=== PATIENT | male | born 1955 | race Hispanic/Latino ===

== ENCOUNTER 2020-01-17 15:54 | Emergency (ER) | payer OTHER ==
[~2020-01-17 15:54] MED LIST: AMLO5TAB5 PO; CEFU500T67 PO; DOXY100C2 PO; HYDR25TA PO; LOSA100T58 PO; SIMV10TA97 PO; TAMS0.4C32 PO
[2020-01-17] MEDS ORDERED: LIDOCAINE HCL MPF 1% 5ML VIAL ONE ×2 (16:24→16:25)
[2020-01-17] MEDS ORDERED: CEFAZOLIN SODIUM 1 GM VIAL ONE (16:43)
[2020-01-17] MEDS ORDERED: TETANUS/DIPHTHERIA TOXOID [ADULT] 0.5 ML VIAL IM ONE (16:44)
== END 2020-01-17 17:27 | disposition home or self-care (01) ==
LOC: EDH 15:54
DX: S61.412A Laceration without foreign body of left hand, initial encounter (principal); I10 Essential (primary) hypertension; W26.0XXA Contact with knife, initial encounter; Y93.89 Activity, other specified; Y92.89 Other specified places as the place of occurrence of the external cause; Y99.8 Other external cause status
CPT/HCPCS: 12041; 73130; 90471; 90714; 96372; 99284; J0690; J3490 ×2

== ENCOUNTER 2020-01-18 01:12 | Emergency (ER) | payer OTHER | END 2020-01-18 01:39 | disposition home or self-care (01) | LOC: EDH 01:12 | DX: T81.33XA Disruption of traumatic injury wound repair, initial encounter (principal); I10 Essential (primary) hypertension; X58.XXXA Exposure to other specified factors, initial encounter; Y93.89 Activity, other specified; Y92.89 Other specified places as the place of occurrence of the external cause; Y99.8 Other external cause status ==

== ENCOUNTER 2023-09-26 04:12 | Inpatient (IN) | payer OTHER ==
[2023-09-26] VITALS (11 sets, daily range): BP systolic 125–149; BP diastolic 73–113; PULSE 63–73; RESP 12–18; O2SAT 96–100
[~2023-09-26] VITALS: Ht 170.2 cm; Wt 82.2 kg
[~2023-09-26 04:12] MED LIST changes: -DOXY100C2 PO; +DOXY100C5 PO; -LOSA100T58 PO; +LOSA100T59 PO
[2023-09-26 04:50] LABS: BASOPHILS # (AUTO) 0.05 K/uL (0.00-0.20); BASOPHILS % (AUTO) 0.7 % (0.0-5.0); EOSINOPHILS # (AUTO) 0.36 K/uL (0.00-0.70); EOSINOPHILS % (AUTO) 4.9 % (0.0-8.0); IMMATURE GRANULOCYTE ABSOLUTE 0.02 K/uL (0-1); LYMPHOCYTES % (AUTO) 26.5 % (21.0-51.0); MEAN CORPUSCULAR HEMOGLOBIN 32.8 pg (27.0-33.0); MEAN CORPUSCULAR HGB CONC 35.7 g/dL (32.0-36.0); MEAN CORPUSCULAR VOLUME 91.8 fL (79-99); MONOCYTES # (AUTO) 0.7 K/uL (0.1-1.0); MONOCYTES % (AUTO) 10.1 % (3.0-13.0); NEUTROPHILS # (AUTO) 4.2 K/uL (1.8-7.7); NEUTROPHILS % (AUTO) 57.5 % (40.0-77.0); PLATELET COUNT (AUTO) 255 K/uL (130-400); RED BLOOD CELL COUNT(AUTO) 4.03 MIL/uL (4.50-6.20); RED CELL DISTRIBUTION WIDTH 13.4 % (11.0-15.5); WHITE BLOOD COUNT (AUTO) 7.4 K/uL (4.8-10.8)
[2023-09-26 04:59] LABS: ALBUMIN 3.8 g/dL (3.5-5.0); BILIRUBIN,TOTAL 0.9 mg/dL (0.2-1.0); CREATININE 1.2 mg/dL (0.5-1.5); TOTAL PROTEIN, SERUM 7.6 g/dL (6.0-8.3)
[2023-09-26 05:03] LABS: POTASSIUM 2.9 mmol/L (3.5-5.1)
[2023-09-26 05:18] LABS: INR 1.04 (0.85-1.15); PARTIAL THROMBOPLASTIN TIME 25.5 SEC (26.3-35.5); PROTHROMBIN TIME 11.2 SEC (9.6-11.6)
[2023-09-26] MEDS ORDERED: POTASSIUM CHLORIDE 10% ELIXIR 20 MEQ/15 ML UDCUP PO ONE ×2 (05:30→06:00)
[2023-09-26] MEDS ORDERED: POTASSIUM CHLORIDE 20MEQ/100ML 100 ML IV ONE (05:30)
[2023-09-26] MEDS ORDERED: HYDR25TA PO (06:12)
[2023-09-26] MEDS ORDERED: LOSA50TA64 PO (06:12)
[2023-09-26] MEDS ORDERED: SIMV10TA97 PO (06:12)
[2023-09-26] MEDS ORDERED: TAMS-1 PO (06:12)
[2023-09-26] MEDS ORDERED: DUTA0.5C37 PO (06:12)
[2023-09-26] MEDS ORDERED: MAGNESIUM 2GM PREMIX 50ML 50 ML IV PRN (07:00)
[2023-09-26] MEDS ORDERED: ACETAMINOPHEN 325 MG TAB PO PRN (07:00)
[2023-09-26] MEDS ORDERED: ONDANSETRON 4MG INJ IVP PRN (07:00)
[2023-09-26] MEDS ORDERED: LABETALOL 20MG SYG IV PRN (07:00)
[2023-09-26] MEDS ORDERED: IPRATROPIUM 0.5 MG/2.5 ML INH IH PRN (07:00)
[2023-09-26 07:24] LABS: HEMOGLOBIN A1C 5.4 % (4.0-6.0)
[2023-09-26 07:58] LABS: THYROID STIMULATING HORMONE 0.87 uIU/mL (0.36-3.74)
[2023-09-26] MEDS ORDERED: ENOXAPARIN SODIUM 40 MG/0.4 ML SYRINGE SQ ONE ×2 (10:14→10:30)
[2023-09-26 12:11] LABS: MAGNESIUM 2.2 mg/dL (1.80-2.40); POTASSIUM 3.9 mmol/L (3.5-5.1)
[2023-09-26] MEDS ORDERED: NITROGLYCERIN 0.4 MG SL TAB SL PRN (13:30)
[2023-09-26] MEDS: METOPROLOL SUCCINATE 25 MG TAB.SR.24H PO SCH (16:37)
[2023-09-26] MEDS: LOSARTAN 50 MG TABLET PO SCH (16:37)
[2023-09-26] MEDS ORDERED: IOHEXOL 350 MG/ML 100ML INFUS..BTL IV ONE (17:15)
[2023-09-26] MEDS ORDERED: 0.9%NACL 1000ML 1,000 ML IV SCH (18:00)
[2023-09-26] MEDS: SIMVASTATIN 10 MG TABLET PO SCH (19:58)
[2023-09-26] MEDS: FAMOTIDINE 20MG TAB PO SCH (19:58)
[2023-09-26] MEDS: ENOXAPARIN SODIUM 80 MG/0.8 ML SQ SCH (19:58)
[2023-09-26 22:51] LABS: APPEARANCE,URINE CLEAR (CLEAR); BILIRUBIN,URINE NEGATIVE (NEGATIVE); COLOR,URINE YELLOW (YELLOW); GLUCOSE, URINE (UA) 200 mg/dL (NEGATIVE); KETONES,URINE NEGATIVE (NEGATIVE); LEUKOCYTE ESTERASE ,URINE NEGATIVE Leu/uL (NEGATIVE); MUCUS,URINE FEW LPF (None Seen); NITRATE,URINE NEGATIVE (NEGATIVE); OCCULT BLOOD,URINE NEGATIVE (NEGATIVE); PROTEIN,URINE 10 mg/dL (NEGATIVE); RBC,URINE 0-1 /HPF (0-1); SQUAMOUS EPITHELIAL CELL,UR RARE /HPF (0-2); UROBILINOGEN,URINE 0.2 mg/dL (0.2-1.0); WBC,URINE 0-1 /HPF (0-1)
[2023-09-27] VITALS (9 sets, daily range): BP systolic 142–151; BP diastolic 80–88; PULSE 63–71; RESP 18–20; O2SAT 97–99
[2023-09-27 05:07] LABS: BASOPHILS # (AUTO) 0.04 K/uL (0.00-0.20); BASOPHILS % (AUTO) 0.8 % (0.0-5.0); EOSINOPHILS # (AUTO) 0.35 K/uL (0.00-0.70); EOSINOPHILS % (AUTO) 6.7 % (0.0-8.0); HEMATOCRIT 35.7 % (42-54); IMMATURE GRANULOCYTE ABSOLUTE 0.01 K/uL (0-1); LYMPHOCYTES % (AUTO) 37.6 % (21.0-51.0); MEAN CORPUSCULAR HEMOGLOBIN 32.4 pg (27.0-33.0); MEAN CORPUSCULAR HGB CONC 34.2 g/dL (32.0-36.0); MEAN CORPUSCULAR VOLUME 94.7 fL (79-99); MONOCYTES # (AUTO) 0.5 K/uL (0.1-1.0); MONOCYTES % (AUTO) 9.7 % (3.0-13.0); NEUTROPHILS # (AUTO) 2.4 K/uL (1.8-7.7); PLATELET COUNT (AUTO) 213 K/uL (130-400); RED BLOOD CELL COUNT(AUTO) 3.77 MIL/uL (4.50-6.20); RED CELL DISTRIBUTION WIDTH 13.6 % (11.0-15.5); WHITE BLOOD COUNT (AUTO) 5.2 K/uL (4.8-10.8)
[2023-09-27 05:25] LABS: CREATININE 0.8 mg/dL (0.5-1.5); MAGNESIUM 2.1 mg/dL (1.80-2.40); PHOSPHORUS 2.1 mg/dL (2.5-4.9)
[2023-09-27] MEDS ORDERED: REGADENOSON 0.4 MG/5 ML PF SYG IVP SCH (07:00)
[2023-09-27] MEDS ORDERED: LOSARTAN 50 MG TABLET PO SCH (09:00)
[2023-09-27] MEDS ORDERED: ENOXAPARIN SODIUM 40 MG/0.4 ML SYRINGE SQ SCH (09:00)
[2023-09-27] MEDS ORDERED: HYDROCHLOROTHIAZIDE 25 MG TABLET PO SCH (09:00)
[2023-09-27] MEDS: TAMSULOSIN HCL 0.4 MG CAP.ER.24H PO SCH (09:25)
[2023-09-27] MEDS: FAMOTIDINE 20MG TAB PO SCH ×2 (09:25→20:56)
[2023-09-27] MEDS: LOSARTAN 50 MG TABLET PO SCH (09:25)
[2023-09-27] MEDS: METOPROLOL SUCCINATE 25 MG TAB.SR.24H PO SCH (09:25)
[2023-09-27] MEDS: ENOXAPARIN SODIUM 80 MG/0.8 ML SQ SCH ×2 (09:26→20:58)
[2023-09-27] MEDS: SIMVASTATIN 10 MG TABLET PO SCH (20:56)
[2023-09-27] MEDS: GABAPENTIN 300 MG CAPSULE PO SCH (20:56)
[2023-09-27] MEDS: NEUTRA-PHOS PACKET 1 EACH PO SCH (20:59)
[2023-09-28] VITALS (9 sets, daily range): BP systolic 127–149; BP diastolic 76–89; PULSE 56–74; RESP 18–20; O2SAT 96–99
[2023-09-28 05:18] LABS: CREATININE 0.8 mg/dL (0.5-1.5); MAGNESIUM 2.1 mg/dL (1.80-2.40); PHOSPHORUS 2.8 mg/dL (2.5-4.9); POTASSIUM 3.6 mmol/L (3.5-5.1)
[2023-09-28] MEDS: FAMOTIDINE 20MG TAB PO SCH ×2 (09:34→21:13)
[2023-09-28] MEDS: METOPROLOL SUCCINATE 25 MG TAB.SR.24H PO SCH (09:34)
[2023-09-28] MEDS: ENOXAPARIN SODIUM 80 MG/0.8 ML SQ SCH ×2 (09:34→21:12)
[2023-09-28] MEDS: TAMSULOSIN HCL 0.4 MG CAP.ER.24H PO SCH (09:35)
[2023-09-28] MEDS: NEUTRA-PHOS PACKET 1 EACH PO SCH ×3 (09:36→21:16)
[2023-09-28] MEDS: LOSARTAN 50 MG TABLET PO SCH (09:36)
[2023-09-28] MEDS: GABAPENTIN 300 MG CAPSULE PO SCH (21:13)
[2023-09-28] MEDS: SIMVASTATIN 10 MG TABLET PO SCH (21:14)
[2023-09-29] VITALS (9 sets, daily range): BP systolic 116–160; BP diastolic 80–92; PULSE 61–79; RESP 18–20; O2SAT 97–99
[2023-09-29 05:34] LABS: CREATININE 0.8 mg/dL (0.5-1.5); MAGNESIUM 2.1 mg/dL (1.80-2.40); POTASSIUM 3.8 mmol/L (3.5-5.1)
[2023-09-29] MEDS ORDERED: APIX5TAB PO (05:53)
[2023-09-29] MEDS ORDERED: METO25TA3 PO (05:53)
[2023-09-29] MEDS ORDERED: IOHEXOL 350 MG/ML 100ML INFUS..BTL IV ONE ×2 (08:27→09:05)
[2023-09-29] MEDS ORDERED: METOPROLOL TARTRATE 1 MG/ML 5ML VIAL IV ONE (08:58)
[2023-09-29] MEDS: FAMOTIDINE 20MG TAB PO SCH ×2 (10:42→20:24)
[2023-09-29] MEDS: TAMSULOSIN HCL 0.4 MG CAP.ER.24H PO SCH (10:42)
[2023-09-29] MEDS: ENOXAPARIN SODIUM 80 MG/0.8 ML SQ SCH (10:42)
[2023-09-29] MEDS: NEUTRA-PHOS PACKET 1 EACH PO SCH ×3 (10:42→20:27)
[2023-09-29] MEDS: METOPROLOL SUCCINATE 25 MG TAB.SR.24H PO SCH (10:42)
[2023-09-29] MEDS: LOSARTAN 50 MG TABLET PO SCH (10:43)
[2023-09-29] MEDS: GABAPENTIN 300 MG CAPSULE PO SCH (20:24)
[2023-09-29] MEDS: SIMVASTATIN 10 MG TABLET PO SCH (20:24)
[2023-09-29] MEDS ORDERED: APIXABAN 5 MG TABLET PO SCH (21:00)
[2023-09-29] MEDS ORDERED: ENOXAPARIN SODIUM 80 MG/0.8 ML SQ SCH (21:00)
[2023-09-30 01:02] VITALS: BP 145/76; PULSE 69; RESP 18
[2023-09-30 04:40] VITALS: BP 140/65; PULSE 67; RESP 18
[2023-09-30 06:19] LABS: BASOPHILS # (AUTO) 0.03 K/uL (0.00-0.20); BASOPHILS % (AUTO) 0.5 % (0.0-5.0); EOSINOPHILS # (AUTO) 0.32 K/uL (0.00-0.70); EOSINOPHILS % (AUTO) 5.5 % (0.0-8.0); HEMATOCRIT 39.3 % (42-54); IMMATURE GRANULOCYTE ABSOLUTE 0.01 K/uL (0-1); LYMPHOCYTES # (AUTO) 2.4 K/uL (1.0-4.8); LYMPHOCYTES % (AUTO) 40.8 % (21.0-51.0); MEAN CORPUSCULAR HEMOGLOBIN 32.5 pg (27.0-33.0); MEAN CORPUSCULAR HGB CONC 34.6 g/dL (32.0-36.0); MONOCYTES # (AUTO) 0.5 K/uL (0.1-1.0); MONOCYTES % (AUTO) 8.8 % (3.0-13.0); NEUTROPHILS # (AUTO) 2.6 K/uL (1.8-7.7); NEUTROPHILS % (AUTO) 44.2 % (40.0-77.0); PLATELET COUNT (AUTO) 223 K/uL (130-400); RED BLOOD CELL COUNT(AUTO) 4.18 MIL/uL (4.50-6.20); RED CELL DISTRIBUTION WIDTH 13.2 % (11.0-15.5); WHITE BLOOD COUNT (AUTO) 5.8 K/uL (4.8-10.8)
[2023-09-30 06:37] LABS: ALBUMIN 3.3 g/dL (3.5-5.0); BILIRUBIN,TOTAL 0.4 mg/dL (0.2-1.0); CREATININE 0.8 mg/dL (0.5-1.5); MAGNESIUM 2.1 mg/dL (1.80-2.40); POTASSIUM 3.6 mmol/L (3.5-5.1); TOTAL PROTEIN, SERUM 6.9 g/dL (6.0-8.3)
[2023-09-30 07:00] VITALS: O2SAT 97
[2023-09-30] MEDS ORDERED: APIXABAN 5 MG TABLET PO ONE (07:00)
[2023-09-30 07:32] VITALS: PULSE 80; RESP 18; O2SAT 93
[2023-09-30 08:08] VITALS: BP 174/90; PULSE 65; RESP 16
[2023-09-30] MEDS: FAMOTIDINE 20MG TAB PO SCH (08:34)
[2023-09-30] MEDS: TAMSULOSIN HCL 0.4 MG CAP.ER.24H PO SCH (08:35)
[2023-09-30] MEDS: METOPROLOL SUCCINATE 25 MG TAB.SR.24H PO SCH (08:36)
[2023-09-30] MEDS: NEUTRA-PHOS PACKET 1 EACH PO SCH (08:43)
[2023-09-30] MEDS: LOSARTAN 50 MG TABLET PO SCH (08:46)
[2023-09-30 12:47] VITALS: BP 158/82; PULSE 67; RESP 16
== END 2023-09-30 15:10 | disposition home or self-care (01) | DRG 281 ==
LOC: EDH 04:12 → EDHIP 06:34 → OBSVTOIN 06:34 → 2CV 10:43 → 2AH 21:32
PROVIDERS: ADMIT Internal Medicine Critical Care Medicine; ATTEND Internal Medicine Critical Care Medicine
PROC: 4A02XM4 Measurement of Cardiac Total Activity, External Approach (ICD-10-PCS; principal; 2023-09-27)
PROC: 3E033HZ Introduction of Radioactive Substance into Peripheral Vein, Percutaneous Approach (ICD-10-PCS; 2023-09-27)
DX: I21.4 Non-ST elevation (NSTEMI) myocardial infarction (principal); I48.92 Unspecified atrial flutter; I48.91 Unspecified atrial fibrillation; E87.6 Hypokalemia; I10 Essential (primary) hypertension; E78.00 Pure hypercholesterolemia, unspecified; I25.10 Atherosclerotic heart disease of native coronary artery without angina pectoris; Z79.899 Other long term (current) drug therapy; Z82.49 Family history of ischemic heart disease and other diseases of the circulatory system
CPT/HCPCS: 36415; 71045; 71275; 75574; 78452; 80048; 80053; 80061; 81001; 83036; 83735; 83880; 84100; 84132; 84443; 84484; 85025; 85378; 85610; 85730; 93005; 93017; 93306; 93970; 96374; A9500; G0378; J1650; J2785; J3480; J3490; Q9967

== ENCOUNTER 2023-10-31 06:43 | Day surgery (SDC) | payer OTHER ==
[2023-10-29 10:21] LABS: BASOPHILS # (AUTO) 0.04 K/uL (0.00-0.20); BASOPHILS % (AUTO) 0.7 % (0.0-5.0); EOSINOPHILS # (AUTO) 0.27 K/uL (0.00-0.70); EOSINOPHILS % (AUTO) 4.6 % (0.0-8.0); HEMATOCRIT 41.7 % (42-54); IMMATURE GRANULOCYTE ABSOLUTE 0.01 K/uL (0-1); LYMPHOCYTES % (AUTO) 33.6 % (21.0-51.0); MEAN CORPUSCULAR HEMOGLOBIN 31.6 pg (27.0-33.0); MEAN CORPUSCULAR HGB CONC 34.1 g/dL (32.0-36.0); MEAN CORPUSCULAR VOLUME 92.9 fL (79-99); MONOCYTES # (AUTO) 0.5 K/uL (0.1-1.0); NEUTROPHILS # (AUTO) 3.1 K/uL (1.8-7.7); NEUTROPHILS % (AUTO) 52.9 % (40.0-77.0); PLATELET COUNT (AUTO) 208 K/uL (130-400); RED BLOOD CELL COUNT(AUTO) 4.49 MIL/uL (4.50-6.20); RED CELL DISTRIBUTION WIDTH 12.9 % (11.0-15.5); WHITE BLOOD COUNT (AUTO) 5.9 K/uL (4.8-10.8)
[2023-10-29 10:28] LABS: APPEARANCE,URINE CLEAR (CLEAR); BILIRUBIN,URINE NEGATIVE (NEGATIVE); COLOR,URINE LIGHT-YELLOW (YELLOW); GLUCOSE, URINE (UA) NEGATIVE (NEGATIVE); KETONES,URINE NEGATIVE (NEGATIVE); LEUKOCYTE ESTERASE ,URINE NEGATIVE Leu/uL (NEGATIVE); NITRATE,URINE NEGATIVE (NEGATIVE); OCCULT BLOOD,URINE NEGATIVE (NEGATIVE); PH,URINE 6.5 (5.0-8.0); PROTEIN,URINE NEGATIVE (NEGATIVE); UROBILINOGEN,URINE 0.2 mg/dL (0.2-1.0)
[2023-10-29 10:31] LABS: CREATININE 0.9 mg/dL (0.5-1.5); POTASSIUM 4.3 mmol/L (3.5-5.1)
[2023-10-29 10:32] LABS: ADD UA MICROSCOPIC NO
[2023-10-29 10:45] VITALS: BP 166/87; PULSE 63; RESP 18
[2023-10-29 10:48] LABS: INR 1.01 (0.85-1.15); PROTHROMBIN TIME 11.7 SEC (9.6-11.6)
[2023-10-29 10:49] LABS: PARTIAL THROMBOPLASTIN TIME 30.8 SEC (26.3-35.5)
[2023-10-29 10:55] LABS: B-TYPE NATRIURETIC PEPTIDE 103 pg/mL (0-100)
[~2023-10-31] VITALS: Ht 170.2 cm; Wt 127.3 kg
[2023-10-31] VITALS (8 sets, daily range): BP systolic 117–151; BP diastolic 65–83; PULSE 73–88; RESP 16
[~2023-10-31 06:43] MED LIST changes: -AMLO5TAB5 PO; +APIX5TAB PO; -CEFU500T67 PO; -DOXY100C5 PO; -HYDR25TA PO; -LOSA100T59 PO; +LOSA25TA41 PO; +METO25TA3 PO; +TAMS-1 PO; -TAMS0.4C32 PO
[2023-10-31] MEDS ORDERED: 0.9%NACL 1000ML 1,000 ML IV ONE (07:27)
[2023-10-31] MEDS ORDERED: IOHEXOL 350 MG/ML 100ML INFUS..BTL IV ONE (09:14)
[2023-10-31] MEDS ORDERED: LIDOCAINE HCL 400MG/20ML VIAL ONE (09:14)
[2023-10-31] MEDS ORDERED: MIDAZOLAM HCL 1 MG/ML 2ML VIAL ONE (09:32)
[2023-10-31] MEDS ORDERED: IOHEXOL-350 50ML VIAL IV ONE (09:38)
[2023-10-31] MEDS ORDERED: HYDRALAZINE 20MG/ML VIAL ONE (09:47)
[2023-10-31] MEDS ORDERED: TRAMADOL HCL 50 MG TABLET PO ONE (11:00)
== END 2023-10-31 13:20 | disposition home or self-care (01) ==
LOC: DAH 06:43
PROVIDERS: ATTEND Internal Medicine Cardiovascular Disease
DX: I25.118 Atherosclerotic heart disease of native coronary artery with other forms of angina pectoris (principal); I10 Essential (primary) hypertension; E78.5 Hyperlipidemia, unspecified; Z79.01 Long term (current) use of anticoagulants; Z79.899 Other long term (current) drug therapy; Z98.890 Other specified postprocedural states
CPT/HCPCS: 80048; 83880; 85025; 85610; 85730; 81003; 36415; 71045; 93005; 93458; A4223 ×3; Q9965; C1894; C1760; J3490; J7030; J0360; J2250; J1644; Q9967 ×2; A4215; A4222; A4221; A4663; A4216; A4606; 99156; 99157

== ENCOUNTER → 2025-01-17 | Outpatient (CLI) | payer OTHER, MEDICARE ==
[~2025-01-17] MED LIST changes: -LOSA25TA41 PO; -METO25TA3 PO
[2025-01-17 12:42] LABS: CREATININE 0.8 mg/dL (0.5-1.3); POTASSIUM 4.3 mmol/L (3.5-5.1)
== END | disposition home or self-care (01) ==
LOC: LAB 10:43
PROVIDERS: ATTEND Nurse Practitioner Acute Care
DX: I10 Essential (primary) hypertension (principal)
CPT/HCPCS: 36415; 80048